=== PATIENT | female | born 1955 | race Caucasian/White ===

== ENCOUNTER 2018-06-05 17:30 | Emergency (ER) | payer OTHER ==
[2018-06-05 17:44] VITALS: BP 143/65
[2018-06-05] MEDS ORDERED: HTN (17:50)
[2018-06-05] MEDS ORDERED: DUL20 PO (17:50)
[2018-06-05] MEDS ORDERED: [UNRECOGNIZED DRUG - REMARK] (17:51)
--- NOTE | 2018-06-05 18:22 | ER Report ---
History and Physical Time Seen By MD: 18:22 Hx. of Stated Complaint: TRIPPED IN POT HOLE WHILE WALKING - LEFT WRIST/ARM PAIN. HPI/ROS CHIEF COMPLAINT: right arm pain HISTORY OF PRESENT ILLNESS: This is a 62 year old female. She tripped in a pothole today. Landed on her right arm. Has pain in proximal forearm, worse with movement and supination/pronation of the forearm. No pain in the elbow or upper arm. No pain in the wrist. Has some scrapes on her arm. Has a small abrasion on her right knee and left synagogue and some bruising on the knee. Normal sensation. No head or neck pain. No loss of consciousness. Allergies: Coded Allergies: No Known Drug Allergies (Unverified , 06/05/18) Home Meds Reported Medications ["Arthritis Med" ] No Conflict Check 06/05/18 [Htn ] No Conflict Check 06/05/18 Duloxetine Hcl (CYMBALTA) 20 Mg Capcr, 20 MG PO QDAY, #5 CAP 06/05/18 Reviewed Nurses Notes: Yes Constitutional Vital Sign - Last 24 Hours 06/05/18 06/05/18 06/05/18 06/05/18 17:43 17:44 18:00 18:15 Temp 98.7 Pulse 60 60 58 Resp 18 B/P (MAP) 143/65 143/65 (91) Pulse Ox 93 94 95 06/05/18 06/05/18 06/05/18 06/05/18 18:30 18:45 19:00 19:15 Pulse 60 59 56 58 Pulse Ox 96 95 95 94 06/05/18 06/05/18 06/05/18 19:15 19:30 19:45 Pulse 58 54 57 Pulse Ox 94 95 95 Physical Exam General: Alert, no acute distress. Eyes: Pupils equal, round, normal sclera. ENT: Small abrasion of the left synagogue, lateral side of eyebrow. Normal mucous membranes Musculoskeletal: Pain in the proximal forearm. No pain over olecranon, or in anticubital area. No pain in the wrist. Pain worsens with moving hand and fingers. Neuro: normal sensation in arm/hand Cardiovascular: Normal pulses and capillary refill. Skin: Scrapes on forearm. Scrapes on right knee with associated bruising. Medical Decision Making EKG/Imaging Imaging INDICATION: forearm injury. DATE: 06/05/2018 6:54 PM. TECHNIQUE: FOREARM RIGHT COMPARISON: None FINDINGS: Alignment is normal. There is an area of lucency through the radial neck on one of the views but is not well characterized on this large field of view images. Otherwise, no evidence of fracture. IMPRESSION: Equivocal fracture involving the radial neck. Dedicated elbow radiographs are recommended if this correlates with a site of pain Report Dictated By: Isidoro Wheat MD at 06/05/2018 6:54 PM ED Course/Re-evaluation ED Course Procedure: Forearm sugar tong half cast placement. A half-cast/splint as noted above was applied. After application of the half- cast, I returned and re-examined the patient. The half-cast was adequately immo bilizing the joint and distally the patient's circulation and sensation was intact. This was applied by the emergency department tach. Decision to Disposition Date: Jun 05, 2018 Decision to Disposition Time: 19:42 Depart Departure Latest Vital Signs Vital Signs Date Time Temp Pulse Resp B/P (MAP) Pulse Ox O2 Delivery O2 Flow Rate FiO2 06/05/18 19:45 57 95 06/05/18 17:44 143/65 (91) 06/05/18 17:43 98.7 18 Impression: Primary Impression: Radial head fracture, closed Condition: Improved Disposition: HOME OR SELF-CARE Patient Instructions: Elbow Fracture (ED) Additional Instructions: Ibuprofen 200mg over the counter tablets, take 4 tablets three times a day with food. Tylenol 500mg over the counter tablets, take 2 tablets every 6 hours as needed for pain. Apply ice 20 minutes every 1-2 hours while awake. Wear the splint and sling until you see orthopedic surgery. Call [facility] on Friday morning to schedule an appointment with them. Rest the injured area, keep it elevated while at rest. Problem Qualifiers Primary Impression: Radial head fracture, closed Encounter type: initial encounter Fracture alignment: nondisplaced Lat erality: right Qualified Codes: S52.124A - Nondisplaced fracture of head of right radius, initial encounter for closed fracture BENJY JORDAN MD Jun 05, 2018 18:22
--- NOTE | 2018-06-05 19:01 | RADIOLOGY IMAGING REPORT ---
FACILITY: [facility] PATIENT NAME: Dian Apple : 1955 MR: [id number] V: [id number] EXAM DATE: ORDERING PHYSICIAN: BENJY JORDAN TECHNOLOGIST: Location: [facility] - [place], [place] Patient: Dian Apple : 1955 Visit/Account:[id number] Date of Sevice: 06/05/2018 INDICATION: forearm injury. DATE: 06/05/2018 6:54 PM. TECHNIQUE: FOREARM RIGHT COMPARISON: None FINDINGS: Alignment is normal. There is an area of lucency through the radial neck on one of the vie ws but is not well characterized on this large field of view images. Otherwise, no evidence of fract ure. IMPRESSION: Equivocal fracture involving the radial neck. Dedicated elbow radiographs are recommended if this co rrelates with a site of pain Report Dictated By: Isidoro Wheat MD at 06/05/2018 6:54 PM Report E-Signed By: Isidoro Wheat MD at 06/05/2018 6:57 PM WSN:[email or web address]
[2018-06-05] MEDS ORDERED: ACETAMINOPHEN 500 MG TAB PO ONE (19:25)
== END 2018-06-05 20:01 | disposition home or self-care (01) ==
LOC: ER 17:54
DX: S52.124A Nondisplaced fracture of head of right radius, initial encounter for closed fracture (principal); W01.0XXA Fall on same level from slipping, tripping and stumbling without subsequent striking against object, initial encounter
CPT/HCPCS: 29105; 73090; 99283; A4565